=== PATIENT | male | born 1935 | race Caucasian/White ===

== ENCOUNTER 2021-09-17 09:28 | Observation (INO) ==
[2021-09-17 11:17] LABS: Basophils % 0.7 %; Eosinophils # 0.2 K/mcL (0.0-0.6); Eosinophils % 2.8 %; Hematocrit 34.6 % (37.5-50.1); Hemoglobin 11.4 g/dL (12.9-16.9); Immature Granulocytes % 0.4 % (0-4); Lymphocytes # 0.9 K/mcL (0.6-4.6); Lymphocytes % 16.2 %; Mean Corpuscular HGB Conc 32.9 g/dL (31.6-35.5); Mean Corpuscular Hemoglobin 31.8 pg (28.0-33.3); Mean Corpuscular Volume 96.6 fL (83.0-100.0); Mean Platelet Volume 8.8 fL (9.4-12.4); Monocytes # 0.6 K/mcL (0.0-1.3); Monocytes % 10.4 %; Neutrophils # 3.7 K/mcL (1.6-8.9); Platelet Count 189 K/mcL (140-400); Red Blood Count 3.58 M/mcL (4.19-5.50); Segmented Neutrophils % 69.5 %; White Blood Count 5.4 K/mcL (4.3-11.1)
[2021-09-17] MEDS ORDERED: Isovue-370 500 ML BOTTLE IVP ONE (11:22)
[2021-09-17 11:25] LABS: INR 3.5; Prothrombin Time 38.4 Seconds (9.4-12.1)
[2021-09-17 11:28] LABS: Activated Partial Thrombo Time 59.8 Seconds (26.0-36.0)
[2021-09-17 11:51] LABS: Alanine Aminotransferase 6 Units/L (7-52); Albumin 4.2 g/dL (3.5-5.7); Albumin/Globulin Ratio 1.3 (1.1-2.2); Alkaline Phosphatase 87 Units/L (34-104); Aspartate Amino Transferase 13 Units/L (13-39); BUN/Creatinine Ratio 22 (6-26); Bilirubin,Total 0.7 mg/dL (0.3-1.0); Blood Urea Nitrogen 21 mg/dL (8-23); Calcium 9.4 mg/dL (8.6-10.3); Carbon Dioxide 25 mEq/L (23-29); Chloride 106 mEq/L (98-107); Globulin 3.2 g/dL (2.4-3.5); Glucose 103 mg/dL (70-105); Osmolality,Calculated 289 (280-300); Sodium 138 mEq/L (136-145); Total Protein 7.4 g/dL (6.4-8.9); Troponin I < 0.03 ng/mL (< 0.04); eGFR For African Americans > 60 (> 60); eGFR For Non-African Americans > 60 (> 60)
[2021-09-17 12:11] LABS: Bilirubin,Urine Negative (Negative); Blood,Urine Moderate (Negative); Clarity,Urine Clear (Clear); Color,Urine Light-Yellow (Yellow); Glucose,Urine (UA) Normal (Normal); Ketones,Urine Negative (Negative); Leukocyte Esterase,Urine Negative (Negative); Mucus,Urine Few per lpf (None-Few); Nitrite,Urine Negative (Negative); Protein,Urine Trace mg/dL (Neg-Trace); Urobilinogen,Urine Normal (Normal); WBC,Urine 0-3 per hpf (0-3)
[2021-09-17 14:26] LABS: Influenza A PCR Negative (Negative); Influenza B PCR Negative (Negative); Resp. Syncytial Virus PCR Negative (Negative)
[2021-09-17 15:04] LABS: SARS-CoV-2 by PCR (In House) Negative (Negative)
[2021-09-17] MEDS ORDERED: 0.9 % Sodium Chloride 1,000 ML IVC ONE (15:22)
[2021-09-17] MEDS ORDERED: Naloxone 0.4 MG/ML INJ IVP PRN (15:27)
[2021-09-17] MEDS ORDERED: Ondansetron 4 MG/2 ML VIAL IVP PRN (15:27)
[2021-09-17] MEDS ORDERED: Acetaminophen 325 MG TABLET PO PRN (15:27)
[2021-09-17] MEDS ORDERED: Melatonin 3 MG TABLET PO PRN (15:27)
[2021-09-17] MEDS ORDERED: Ipratropium/Albuterol Neb 3 ML IH PRN (16:00)
[2021-09-17] MEDS: Ipratropium/Albuterol Neb 3 ML IH SCH ×2 (16:46→20:38)
[2021-09-17] MEDS ORDERED: Warfarin perPT PO PRN (18:00)
[2021-09-18 01:13] LABS: Hematocrit 30.5 % (37.5-50.1); Mean Corpuscular HGB Conc 32.1 g/dL (31.6-35.5); Mean Corpuscular Hemoglobin 31.5 pg (28.0-33.3); Mean Corpuscular Volume 98.1 fL (83.0-100.0); Mean Platelet Volume 8.8 fL (9.4-12.4); Platelet Count 173 K/mcL (140-400); Red Blood Count 3.11 M/mcL (4.19-5.50); Red Cell Distribution Width 14.8 % (11.5-14.5); White Blood Count 5.7 K/mcL (4.3-11.1)
[2021-09-18 01:18] LABS: Hemoglobin 9.8 g/dL (12.9-16.9)
[2021-09-18 01:20] LABS: INR 2.9; Prothrombin Time 32.3 Seconds (9.4-12.1)
[2021-09-18 01:35] LABS: BUN/Creatinine Ratio 24 (6-26); Blood Urea Nitrogen 21 mg/dL (8-23); Carbon Dioxide 22 mEq/L (23-29); Chloride 108 mEq/L (98-107); Potassium 4.3 mEq/L (3.5-5.1); Sodium 138 mEq/L (136-145); eGFR For African Americans > 60 (> 60)
[2021-09-18 01:36] LABS: Calcium 8.1 mg/dL (8.6-10.3); Glucose 96 mg/dL (70-105); Magnesium 1.9 mg/dL (1.6-2.6); Osmolality,Calculated 289 (280-300); Phosphorous 3.5 mg/dL (2.7-4.5); eGFR For Non-African Americans > 60 (> 60)
[2021-09-18 03:20] VITALS: O2SAT 98
[2021-09-18] MEDS: Ipratropium/Albuterol Neb 3 ML IH SCH ×2 (04:04→11:12)
[2021-09-18 08:03] VITALS: TEMP 97.8
[2021-09-18 09:50] VITALS: BP 104/66; PULSE 90
[2021-09-18] MEDS ORDERED: *HR* Warfarin 3 MG TABLET PO ONE (18:00)
== END 2021-09-18 11:54 | disposition home health service (06) ==
LOC: 3BNU 09:28 → EMEROOARM 09:28 → 3BNU 16:17
PROVIDERS: ADMIT Internal Medicine; ATTEND Internal Medicine